=== PATIENT | male | born 1975 | race African-American/Black ===

== ENCOUNTER 2019-04-20 11:29 | Day surgery (SDC) | payer OTHER ==
[~2019-04-20] VITALS: Ht 188 cm; Wt 201.8 kg
[~2019-04-20 11:29] MED LIST: CYAN500T8 PO; GABA600T4 PO; LR 1,000 ML IV ONE; VENTAER INH; VITA200010 PO; ceFAZolin SOD 1 GM in D5W MINI-BAG PLUS 50 ML IV ONE; ceFAZolin SOD 2 GM in IV 1 EA IV ONE
[2019-04-20] MEDS ORDERED: NYST1POW9 TOP (13:22)
[2019-04-20] MEDS ORDERED: LIDOCAINE 2% INJ 100 MG/5 ML SDV (FOR ANES.) As Ordered ONE (14:21)
[2019-04-20] MEDS ORDERED: fentaNYL 100 MCG/2 ML INJECTION (J3010) As Ordered ONE (14:22)
[2019-04-20] MEDS ORDERED: MIDAZOLAM INJ 2 MG/2 ML VIAL (J2250) As Ordered ONE (14:22)
[2019-04-20] MEDS ORDERED: ONDANSETRON 4MG/2ML VIAL (J2405) As Ordered ONE (14:23)
[2019-04-20] MEDS ORDERED: dexameTHASONE 4 MG/ML 1ML VIAL (J1100) As Ordered ONE (14:23)
[2019-04-20] MEDS ORDERED: BUPIVACAINE HCL 0.25% 10 ML VIAL As Ordered ONE (14:39)
[2019-04-20] MEDS ORDERED: LIDOCAINE 2% MDV 20 ML VIAL As Ordered ONE (14:39)
[2019-04-20] MEDS ORDERED: PROPOFOL 500 MG/50 ML VIAL As Ordered ONE (14:40)
[2019-04-20] MEDS ORDERED: LR 1,000 ML IV SCH (18:00)
[2019-04-20] MEDS ORDERED: HYDROMORPHONE HCL 0.5 MG/ 0.5 ML SYRINGE (J1170 PER 1) IV PRN (18:00)
[2019-04-20] MEDS ORDERED: PERCOCET 5MG/325MG TAB PO PRN (18:00)
[2019-04-20] MEDS ORDERED: fentaNYL 100 MCG/2 ML INJECTION (J3010) IV PRN (18:00)
[2019-04-20] MEDS ORDERED: ONDANSETRON 4MG/2ML VIAL (J2405) IV PRN (18:00)
--- NOTE | 2019-04-20 18:51 | ROOPDOC ---
[facility] Report Of Operation Report of Operation DATE OF PROCEDURE: 04/20/19 PREPROCEDURE DIAGNOSES: [Left hydrocele]. POSTPROCEDURE DIAGNOSES: [Same]. PROCEDURE: [Left hydrocelectomy]. SURGEON: [Jamal]MD PRESETTER OPERATOR: [None], ANESTHESIA: [Spinal with Mac]. ESTIMATED BLOOD LOSS: Approximately [minimal] mL. COMPLICATIONS: [None]. REMARKS: . PROCEDURE NOTE: [Patient's 43-year-old male left hydrocele becoming increasingly uncomfortable. Patient was consulted. Ultrasound was obtained. No abnormalities within the scrotum were noted just hydrocele. Patient was scheduled for hydrocelectomy. ]. DESCRIPTION OF PROCEDURE: Patient identified as himself. His H&P was updated his consent was reviewed and signed. Risk and benefits of the procedure were discussed with the patient. Patient was seen by the operating room team and anesthesia. Patient left sided scrotal was marked the correct side for surgery Patient was consented for spinal anesthesia with Mac. Patient was brought to the operating room first timeout was performed. Patient was given spinal anesthesia and placed in the supine position. Prepped and Draped in standard fashion. The left hemiscrotum was placed in the tension incision was made in the midline of the scrotum, dissecting through the skin into the left hemiscrotum through dartos muscle, then through the superficial fascia down to the cremasteric muscle and fascia. Once reaching the tunica vaginalis, care was taken not to enter into the hydrocele sac. The tunica was then mobilized away from the cremasteric muscle until the sac was easily exposed. An incision was made into the sac and fluid was then drained. The incision was extended along the tunica vaginalis assuring not to injure the testicles, the structures of the spermatic cord, or epididymis. The hydrocele sac was then inverted and wrapped around the spermatic cord. It was oversewed using a 3-0 Monocryl suture in a running technique. The hemiscrotum and the skin was inspected to assure that hemostasis was maintained. Hemiscrotum was also irrigated. The cremasteric muscle and fascia and the superficial layer oversew using a 3-0 Monocryl suture in a running technique. Dartos fascia was then closed using a 3-0 Monocryl using a horizontal mattress technique. The skin was then closed using a running technique with a 4-0 Monocryl suture. 10 mL of epi mixed with 0.25 Marcaine was injected along the suture line for additional anesthetic. Hemostasis was maintained throughout the entire procedure. Lissa. Patient did ooze a great deal from within the scrotum and scrotal skin. A pressure dressing was place and a scrotal support was placed on the patient. Patient was washed off and awakened from sedation and taken to recovery room without complication.]. VIC AUGUST MD Apr 20, 2019 18:51
[2019-04-20 20:15] VITALS: BP 185/102
[2019-04-20 20:45] VITALS: BP 169/104
[2019-04-20] MEDS ORDERED: [UNRECOGNIZED DRUG - REMARK] XX SCH (21:00)
[2019-04-20 21:45] VITALS: BP 142/84
[2019-04-20 22:45] VITALS: BP 146/86
--- NOTE | 2019-04-20 23:03 | ECGEPIP ---
[facility] Test Date: 2019-04-20 Pat Name: SUSU CABALLERO Department: Room: - Gender: Male Rn Radiation Oncology: [facility] : 1975 Requested By: LUIZ Gomez Order Number: [id number] Reading MD: Tito Donahue Measurements Intervals [place] Rate: 64 P: 43 NC: 227 QRS: -1 QRSD: 126 T: 14 QT: 392 QTc: 407 Interpretive Statements SINUS RHYTHM WITH FIRST DEGREE AV BLOCK POSSIBLE ANTERIOR MYOCARDIAL INFARCTION, OF INDETERMINATE AGE Comparison tracing not on file Electronically Signed on 04-20-2019 23:03:10 EST by Tito Donahue
[2019-04-20 23:45] VITALS: BP 140/81
[2019-04-21] MEDS ORDERED: IBUPROFEN 800 MG TAB PO PRN
[2019-04-21 00:45] VITALS: BP 142/84
[2019-04-21 02:00] VITALS: BP 146/86
[2019-04-21 06:00] VITALS: BP 130/70
[2019-04-21] MEDS: LR 1,000 ML IV SCH ×2 (07:20→09:01)
--- NOTE | 2019-04-21 08:53 | IPNPDOC ---
Subjective Review oF Systems Chief Complaint The patient is a 43-year-old male admitted with a reason for visit of Left Hydrocele. General: Reports: Normal Appetite; Denies: Fatigue, Malaise Constitutional: Denies: Fever, Chills, Sweats, Weakness, Malaise Eyes: Denies: Pain, Vision change, Conjunctivae inflammation, Eyelid inflammation, Redness, Other ENT: Denies: Head Aches, Sore Throat, Epistaxis Cardiovascular: Denies Chest Pain, Denies Palpitations Gastrointestinal: Denies: Nausea, Vomiting, Abdominal Pain Genitourinary: Denies: Dysuria, Frequency, Incontinence, Hematuria Musculoskeletal: Denies: Neck Pain, Back Pain Objective Physical Examination General Exam: Alert, No Acute Distress ENT EXAM: Atraumatic, Mucous membr. moist/pink, Pharynx Normal Chest Exam: Clear to auscultation, Normal air movement Male Exam: Normal Genital Exam Vital Signs/I&O Vital Signs Date Time Temp Pulse Resp B/P (MAP) Pulse Ox O2 Delivery O2 Flow Rate FiO2 04/21/19 06:00 97.5 65 2 130/70 (90) 98 Room Air 04/20/19 17:52 10 I&O- Last 24 Hours up to 6 AM 04/21/19 06:00 Intake Total 2925 ml Output Total 1260 ml Balance 1665 ml Laboratory Data Labs 24H Laboratory Tests 2 04/20/19 13:36: Bedside Glucose (Misc Panel) 91 FSBS Laboratory Tests Test 04/20/19 13:36 Range/Units Bedside Glucose (Misc Panel) 91 70-105 MG/DL Assessment/Plan Date Seen The patient was seen on 04/21/19. Patient Summary Admitted secondary to lack of ride last night. Patient stable throughout the night. Drressing removed incision intact without hematoma or signs of an infection. Plan/VTE VTE Prophylaxis Ordered?: Yes Plan Dressing removed. Discharge today VIC AUGUST MD Apr 21, 2019 08:53
[2019-04-21] MEDS ORDERED: BACITRACIN OINT 30GM TOP PRN (12:00)
== END 2019-04-21 14:15 | disposition home or self-care (01) ==
LOC: M SDC 11:29 → M MS5PR 20:04 → M SDC 04-21 14:15
PROVIDERS: ATTEND Urology
DX: N43.3 Hydrocele, unspecified (principal); J45.20 Mild intermittent asthma, uncomplicated; F32.9 Major depressive disorder, single episode, unspecified; E55.9 Vitamin D deficiency, unspecified; M54.5 Low back pain; G25.81 Restless legs syndrome; Z98.84 Bariatric surgery status; G47.33 Obstructive sleep apnea (adult) (pediatric); E11.9 Type 2 diabetes mellitus without complications; L40.8 Other psoriasis; E66.01 Morbid (severe) obesity due to excess calories; Z68.43 Body mass index [BMI] 50.0-59.9, adult; M10.9 Gout, unspecified; I89.0 Lymphedema, not elsewhere classified; Z79.899 Other long term (current) drug therapy; Z91.013 Allergy to seafood
CPT/HCPCS: 55040; 88302; 93005; J0690; J1100; J2250; J2405; J3010

== ENCOUNTER → 2019-05-11 | Outpatient (REF) | payer OTHER ==
[~2019-05-11] MED LIST changes: -LR 1,000 ML IV ONE; +NYST1POW9 TOP; -ceFAZolin SOD 1 GM in D5W MINI-BAG PLUS 50 ML IV ONE; -ceFAZolin SOD 2 GM in IV 1 EA IV ONE
== END ==
LOC: M SMT 13:00
PROVIDERS: ATTEND Nurse Practitioner Family
DX: N43.3 Hydrocele, unspecified (principal)

== ENCOUNTER → 2019-07-13 | Outpatient (REF) | payer OTHER | LOC: M SMT 14:42 | PROVIDERS: ATTEND Urology | DX: N43.3 Hydrocele, unspecified (principal) ==

== ENCOUNTER → 2020-03-12 | Outpatient (REF) | payer OTHER ==
[2020-03-12 13:49] LABS: BASO % 0.3 % (0.0-1.0); EOS # 0.1 10^3/uL (0.0-0.5); EOS % 0.9 % (0.0-3.0); HEMATOCRIT 42.2 % (42.0-52.0); HEMOGLOBIN 13.1 g/dl (13.5-17.5); LYMPH # 2.2 10^3/uL (1.5-5.0); MEAN CORPUSCULAR HEMOGLOBIN 25.9 pg (27.0-33.0); MEAN CORPUSCULAR VOLUME 83.6 fl (80.0-96.0); MONO # 0.6 10^3/uL (0.0-0.8); MONO % 9.8 % (0.0-5.0); NEUTROPHILS # 3.5 10^3/uL (1.5-8.5); NEUTROPHILS % 54.7 % (36.0-66.0); PLATELET COUNT, AUTOMATED 311 10^3/uL (150-450); RED BLOOD COUNT 5.05 10^6/uL (4.30-6.10); WHITE BLOOD COUNT 6.5 10^3/uL (4.0-10.0)
[2020-03-12 14:21] LABS: ALBUMIN 3.7 GM/DL (3.2-5.2); ALT/SGPT 21 U/L (12-78); BILIRUBIN,TOTAL 0.4 MG/DL (0.2-1.0); BLOOD UREA NITROGEN 14 MG/DL (7-18); CALCIUM LEVEL 9.1 MG/DL (8.5-10.1); CARBON DIOXIDE LEVEL 31 MEQ/L (21-32); CHLORIDE LEVEL 105 MEQ/L (98-107); CREATININE FOR GFR 1.03 MG/DL (0.70-1.30); GLOMERULAR FILTRATION RATE > 60.0 (>60); GLUCOSE, FASTING 63 MG/DL (70-100); POTASSIUM SERUM 3.8 MEQ/L (3.5-5.1); SODIUM LEVEL 141 MEQ/L (136-145); TOTAL PROTEIN 7.5 GM/DL (6.4-8.2)
[2020-03-12 14:39] LABS: HEPATITIS B SURFACE ANTIGEN NEGATIVE (NEGATIVE)
[2020-03-12 15:05] LABS: HEPATITIS C VIRUS ABY INDEX 0.1 INDEX (<0.8)
[2020-03-12 15:07] LABS: HEPATITIS B CORE ANTIBODY IGM NEGATIVE (NEGATIVE); HIV 1&2 SCREEN CENTAUR NEGATIVE (NEGATIVE)
[2020-03-12 15:09] LABS: HEPATITIS A ANTIBODY IGM NEGATIVE (NEGATIVE)
== END ==
LOC: M SFHCPLAZ 10:20
PROVIDERS: ATTEND Physician Assistant
DX: L40.9 Psoriasis, unspecified (principal)

== ENCOUNTER → 2020-07-09 | Outpatient (REF) | payer OTHER, MEDICAID ==
[~2020-07-09] MED LIST changes: +CYAN500T14 PO; -CYAN500T8 PO
[2020-07-09 14:19] LABS: APPEARANCE, URINE CLEAR (CLEAR); BACTERIA, URINE AUTO NEGATIVE (NEGATIVE); BILIRUBIN, URINE AUTO NEGATIVE (NEGATIVE); BLOOD, URINE BLOOD NEGATIVE (NEGATIVE); COLOR, URINE YELLOW (YELLOW); GLUCOSE, URINE (UA) AUTO NEGATIVE (NEGATIVE); KETONE, URINE AUTO NEGATIVE (NEGATIVE); LEUKOCYTE ESTERASE, URINE AUTO NEGATIVE (NEGATIVE); MUCUS, URINE SMALL (NEGATIVE); NITRITE, URINE AUTO NEGATIVE (NEGATIVE); PROTEIN, URINE AUTO NEGATIVE (NEGATIVE); RBC, URINE AUTO 0 /HPF (0-3); SPECIFIC GRAVITY URINE AUTO 1.015 (1.002-1.035); SQUAMOUS EPITHELIAL CELL UR AU 0 /HPF (0-6); WBC, URINE AUTO 1 /HPF (0-3)
== END ==
LOC: M SMT 12:33
PROVIDERS: ATTEND Nurse Practitioner Family
DX: R39.198 Other difficulties with micturition (principal)

== ENCOUNTER → 2021-07-02 | Outpatient (CLI) | payer OTHER | LOC: M LAB 14:43 | PROVIDERS: ATTEND Nurse Practitioner Family | DX: L40.0 Psoriasis vulgaris (principal); Z79.899 Other long term (current) drug therapy ==

== ENCOUNTER → 2024-04-04 | Outpatient (REF) | payer OTHER, MEDICAID ==
[~2024-04-04] MED LIST changes: +GABA-1490 PO; -GABA600T4 PO; +NYST1POW3 TOP; -NYST1POW9 TOP
== END ==
LOC: M SFHCADAM 09:43
PROVIDERS: ATTEND Nurse Practitioner Family
DX: L40.0 Psoriasis vulgaris (principal); Z79.899 Other long term (current) drug therapy

== ENCOUNTER → 2024-06-26 | Outpatient (REF) | payer OTHER, MEDICAID ==
[2024-06-26 18:07] LABS: APPEARANCE, URINE CLEAR (CLEAR); BACTERIA, URINE AUTO NEGATIVE (NEGATIVE); BILIRUBIN, URINE AUTO NEGATIVE (NEGATIVE); BLOOD, URINE BLOOD NEGATIVE (NEGATIVE); COLOR, URINE YELLOW (YELLOW); GLUCOSE, URINE (UA) AUTO NEGATIVE (NEGATIVE); KETONE, URINE AUTO NEGATIVE (NEGATIVE); LEUKOCYTE ESTERASE, URINE AUTO NEGATIVE (NEGATIVE); NITRITE, URINE AUTO NEGATIVE (NEGATIVE); PROTEIN, URINE AUTO NEGATIVE (NEGATIVE); RBC, URINE AUTO 0 /HPF (0-3); SPECIFIC GRAVITY URINE AUTO 1.012 (1.002-1.035); SQUAMOUS EPITHELIAL CELL UR AU 0 /HPF (0-6); UROBILINOGEN, URINE AUTO 0.2 mg/dL (0.0-2.0); WBC, URINE AUTO 0 /HPF (0-3)
== END ==
LOC: M SMT 17:17
PROVIDERS: ATTEND Nurse Practitioner Family
DX: R39.9 Unspecified symptoms and signs involving the genitourinary system (principal)